=== PATIENT | male | born 1955 | race Caucasian/White ===

== ENCOUNTER 2017-04-17 19:07 | Emergency (ER) | payer MEDICARE, MEDICAID ==
[~2017-04-17] VITALS: Ht 177.8 cm; Wt 109.1 kg
[~2017-04-17 19:07] MED LIST: ASPI-973 PO; CLOP75TA28 PO; FURO-128 PO; GABA-502 PO; INSU100I16 SUBQ; INSU100V7 SUBQ; LEVO100T6 PO; LISI-571 PO; METO25TA6 PO; PRAV40TA PO; SPIR25TA3 PO
[2017-04-17 19:12] VITALS: BP 193/97; PULSE 77; RESP 18; O2SAT 98
== END 2017-04-17 20:10 | disposition left against medical advice (07) ==
LOC: SED 19:07
DX: Z53.21 Procedure and treatment not carried out due to patient leaving prior to being seen by health care provider (principal)